=== PATIENT | male | born 1980 | race Two or more races ===

== ENCOUNTER 2023-08-01 19:53 | Inpatient (IN) | payer MEDICAID, OTHER ==
[~2023-08-01] VITALS: Ht 170.2 cm; Wt 72.2 kg
[2023-08-01 20:32] VITALS: PULSE 99; RESP 23; O2SAT 95
[2023-08-01] MEDS: levETIRAcetam 1000 mg/100ml 100 ML IV ONE (21:05)
[2023-08-01 21:36] LABS: Basophils # (auto) 0.1 10 ^3/uL (0-0.2); Basophils % (auto) 0.8 % (0.0-2.0); Eosinophils # (auto) 0 10 ^3/uL (0-0.8); Lymphocytes # (auto) 0.3 10 ^3/uL (0.4-5.4); Lymphocytes % (auto) 3.2 % (10.0-50.0); Mean Corpuscular Hemoglobin 32.2 pg (28.0-32.0); Mean Corpuscular Hgb Conc. 34.9 g/dL (32.0-36.0); Mean Corpuscular Volume 92.3 fL (80.0-100.0); Monocytes # (auto) 0.8 10 ^3/uL (0-1.3); Monocytes % (auto) 9.1 % (0.0-12.0); Neutrophils # (auto) 7.5 10 ^3/uL (1.6-8.6); Neutrophils % (auto) 86.9 % (37.0-80.0); Red Blood Cells 4.34 10^6/uL (4.5-5.90); Red Cell Distribution Width 13.8 % (11.8-14.3); White Blood Cell 8.6 10^3/uL (4.4-10.8)
[2023-08-01 21:48] LABS: Chloride 98 mmol/L (98-107); Potassium 3.1 mmol/L (3.5-5.1); Sodium 132 mmol/L (136-145)
[2023-08-01 21:49] LABS: Anion Gap 11 (5-15); Carbon Dioxide 23 mmol/L (20-30)
[2023-08-01 21:54] LABS: BUN/Creatinine Ratio 9.8 (10.0-20.0); Blood Alcohol < 3.0 mg/dL (<10); Blood Urea Nitrogen 8 mg/dL (9-23); Glucose 289 mg/dL (74-106)
[2023-08-01] MEDS ORDERED: HYDROcodone-ACET 5/325MG TAB PO PRN (22:45)
[2023-08-01] MEDS: POTASSIUM CHL 20 Meq TABLET PO ONE (22:45)
[2023-08-01] MEDS ORDERED: ACETAMINOPHEN 325 MG TAB PO PRN (22:45)
[2023-08-01] MEDS ORDERED: DOCUSATE SOD 100 MG CAP PO PRN (22:45)
[2023-08-01] MEDS ORDERED: DEXTROSE (50%) 50ML SYRG IV PRN (22:45)
[2023-08-01 22:49] LABS: Amphetamine Screen, Urine Neg (NEGATIVE); Barbiturate Scree,Urine Neg (NEGATIVE); Benzodiazephine Screen, Urine Neg (NEGATIVE)
[2023-08-01 22:50] LABS: Cannabinoid Screen, Urine Neg (NEGATIVE); Cocaine Screen, Urine Neg (NEGATIVE); Opiate Scree,Urine Neg (NEGATIVE); Phencyclidine Screen, Urine Neg (NEGATIVE)
[2023-08-01] MEDS: ACETAMINOPHEN 325 MG TAB PO ONE (23:08)
[2023-08-01] MEDS ORDERED: NITROGLYCERIN 0.4 MG SL TAB SL PRN (23:45)
[2023-08-01] MEDS ORDERED: MORPHINE SULFATE INJ 2 MG/ml SYRG IV PRN (23:45)
[2023-08-02] MEDS: SODIUM CHLORIDE 0.9% 1,000 ML IV SCH ×2 (00:05→17:12)
[2023-08-02] MEDS: InsuLIN REG 1unit/0.01ml Soln (100units/ml) SC SCH (00:05)
[2023-08-02] MEDS: ACCU-CHEK COMFORT CURVE STRIP VI SCH (00:06)
[2023-08-02] MEDS: ONDANSETRON HCL 4 MG/2 ML VIAL IV PRN (00:29)
[2023-08-02 04:35] LABS: Basophils # (auto) 0 10 ^3/uL (0-0.2); Basophils % (auto) 0.5 % (0.0-2.0); Eosinophils # (auto) 0 10 ^3/uL (0-0.8); Eosinophils % (auto) 0.4 % (0.0-7.0); Hematocrit 41.1 % (41.0-53.0); Hemoglobin 14.2 g/dL (13.5-17.5); Lymphocytes # (auto) 1.2 10 ^3/uL (0.4-5.4); Lymphocytes % (auto) 15.7 % (10.0-50.0); Mean Corpuscular Hemoglobin 31.6 pg (28.0-32.0); Mean Corpuscular Hgb Conc. 34.6 g/dL (32.0-36.0); Mean Corpuscular Volume 91.3 fL (80.0-100.0); Monocytes # (auto) 1.1 10 ^3/uL (0-1.3); Monocytes % (auto) 14.5 % (0.0-12.0); Neutrophils # (auto) 5.4 10 ^3/uL (1.6-8.6); Neutrophils % (auto) 68.9 % (37.0-80.0); Nucleated Red Blood Cells % 0.1 %; Red Cell Distribution Width 13.2 % (11.8-14.3); White Blood Cell 7.8 10^3/uL (4.4-10.8)
[2023-08-02 04:56] LABS: Alanine Aminotransferase 95 U/L (7-40); Albumin 4.4 g/dL (3.2-4.8); Alkaline Phosphatase 169 U/L (46-116); Anion Gap 6 (5-15); Aspartate Aminotransferase 187 U/L (13-40); Blood Urea Nitrogen 6 mg/dL (9-23); Calcium 9.8 mg/dL (8.5-10.1); Carbon Dioxide 27 mmol/L (20-30); Chloride 101 mmol/L (98-107); Glucose 104 mg/dL (74-106); Potassium 3.7 mmol/L (3.5-5.1); Sodium 134 mmol/L (136-145)
[2023-08-02 04:57] LABS: Bilirubin, Total 1.7 mg/dL (0.2-1.0); Total Protein 7.8 g/dL (5.7-8.2)
[2023-08-02 07:50] VITALS: PULSE 82; RESP 18; O2SAT 95
[2023-08-02] MEDS: levETIRAcetam 1000 mg/100ml 100 ML IV SCH (10:21)
[2023-08-02] MEDS ORDERED: LORazepam 2MG/ML-1ML VIAL IV PRN ×2 (13:30→16:15)
[2023-08-02] MEDS: chlordiazePOXIDE HCL 25 MG CAP PO SCH (14:12)
[2023-08-02 16:50] VITALS: PULSE 101; RESP 18; O2SAT 98
[2023-08-02] MEDS: FOLIC ACID 1 MG, MULTIPLE VITAMIN 10 ML, MAGNESIUM SULF SDV 50% 8 MEQ, THIAMINE INJ 100... INJ SCH (18:08)
[2023-08-02 20:00] VITALS: PULSE 72; PULSE 91; RESP 20; O2SAT 99
[2023-08-02 21:00] VITALS: BP 134/90; PULSE 87; RESP 20; TEMP 100; O2SAT 99
[2023-08-03] VITALS (9 sets, daily range): BP systolic 125–137; BP diastolic 62–93; PULSE 66–96; RESP 17–20; TEMP 98.3–99.6; O2SAT 94–99
[2023-08-03] MEDS: chlordiazePOXIDE HCL 25 MG CAP PO SCH (11:40)
[2023-08-04 01:00] VITALS: BP 130/100; PULSE 78; RESP 17; TEMP 98.4; O2SAT 100
[2023-08-04 05:00] VITALS: BP 126/91; PULSE 75; RESP 18; TEMP 98; O2SAT 97
[2023-08-04 08:00] VITALS: PULSE 88
[2023-08-04 08:40] VITALS: BP 141/100; PULSE 77; RESP 20; TEMP 99.3; O2SAT 97
[2023-08-04] MEDS: chlordiazePOXIDE HCL 25 MG CAP PO SCH (09:20)
[2023-08-04] MEDS ORDERED: CHL10C PO (10:01)
[2023-08-04] MEDS ORDERED: CHL25C PO (10:01)
[2023-08-04] MEDS ORDERED: MULT1TAB95 PO (10:01)
[2023-08-04] MEDS ORDERED: FOLI-119 PO (10:01)
[2023-08-04] MEDS ORDERED: THIA100T13 PO (10:01)
[2023-08-05] MEDS ORDERED: chlordiazePOXIDE HCL 25 MG CAP PO SCH (07:00)
== END 2023-08-04 12:10 | disposition home or self-care (01) | DRG 53 ==
LOC: ER 19:53 → EDBD 19:53 → TELE 23:44 → TELE-CENTR 08-02 16:15
PROVIDERS: ADMIT Nurse Practitioner Family; ATTEND Family Medicine
DX: G40.509 Epileptic seizures related to external causes, not intractable, without status epilepticus (principal); E87.1 Hypo-osmolality and hyponatremia; E11.9 Type 2 diabetes mellitus without complications; E87.6 Hypokalemia; Y90.9 Presence of alcohol in blood, level not specified; F10.139 Alcohol abuse with withdrawal, unspecified; I10 Essential (primary) hypertension; Z83.3 Family history of diabetes mellitus
CPT/HCPCS: 36415; 70450; 80048; 80053; 80307; 80320; 82962; 85025; 95819; 96365; G0378; J1815; J2405